=== PATIENT | female | born 1970 | race Caucasian/White ===

== ENCOUNTER 2018-12-07 06:04 | Observation (INO) ==
--- NOTE | 2018-11-24 14:49 | PAT Medication Instructions ---
Medication Instructions Date of Service November 24, 2018 Home Medications ibuprofen 600 mg PO BID PRN ASK your surgeon for instructions ibuprofen 600 mg PO BID PRN Other Notes If you have any questions please call us at [phone] or [phone] or [phone] or [phone]
--- NOTE | 2018-11-25 08:47 | Anesthesiology Consultation ---
Date of Service November 25, 2018 Assessment & Plan (1) Encounter for pre-operative examination: Chart Review Chart Review: Acceptable Risk for Surgery (pending preop testing (labs, EKG, CXR)) and Patient seen in Pre Admission Testing Teaching & Discussion Pre-Anesthesia Teaching/Discussion Notes: Instructed NPO after midnight before surgery,except medications with 15 cc of water. Medication instructions provided according to the PAT guidelines. History Surgery Operation Date: 12/07/18 10:25 Proposed Procedures p Anterior Cervical Discectomy Fusion Spinal Cord Monitoring - Bharat Iraheta DO Height/Weight Height: 5 ft 4 in Weight: 66.9 kg Allergies Allergy/AdvReac Type Severity Reaction Status Date / Time No Known Allergies Allergy Verified 11/19/18 15:31 Medications Home Medications Medication Instructions Recorded Confirmed Last Taken ibuprofen 600 mg PO BID PRN 11/19/18 11/19/18 Unknown Past Medical History Medical History Cervical stenosis of spine with UE radiculopathy/neuropathy Exercise / Class Metabolic Activity II 4-5 Yardwork/Stairs/Walk up hill Past Family History Family History Grandmother Family hx of colon cancer Past Surgical History Surgical History History of adenoidectomy History of bilateral tubal ligation History of colonoscopy History of repair of ACL right ACL revision History of tonsillectomy S/P ACL repair right Past Anesthesia History No Hx of Anesthesia Complications (except PONV) and No Family Hx of Anesthesia Complications History of PONV No Hx of Motion Sickness and History of PONV (multiple times) STOP BANG Total 0 Social History Smoking Status: Never smoker Do You Dip or Chew Tobacco: No Hx Alcohol Use: Yes Alcohol type: beer alcohol intake frequency: other Alcohol Intake Frequency Comment: RARELY Hx Substance Use: No substance use type: does not use Review of Systems Patient denies chest pain, shortness of breath, dyspnea on exertion, reflux, cough, wheezing, palpitations. Physical Exam Vital Signs VITALS BP 117/75 P 55 TEMP 98.3 SP02 100%RA RESP 18 PHYSICAL Decreased cervical extension 2/2 UE radiculopathy Full TMJ range of motion. TMD 3 finger breaths Mallampati Score 1 Dentition: missing molar filling, 2 caps on molars Lungs: clear throughout to auscultation Cardiac: regular rate and rhythm, no murmurs noted Spine: normal Extremities: no edema
--- NOTE | 2018-11-25 09:36 | XRay Report ---
XR chest Pre-admission PA/Lat HISTORY: Preop. COMPARISON: None. FINDINGS: The lungs are clear. Cardiac silhouette is normal in size. No pleural effusions. No pneumot horax. IMPRESSION: No acute process. Electronically signed by: Cortez Tristan M.D. 11/25/2018 9:35 AM
[2018-11-25 10:11] LABS: Appearance Urine Clear (Clear); Bilirubin Urine Negative (Negative); Blood Urine Negative (Negative); Color Urine Yellow; Glucose Urine UA Negative (Negative); Ketones Urine Negative (Negative); Leukocyte Esterase Urine Negative (Negative); Nitrite Urine Negative (Negative); Protein Urine Negative (Negative); Specific Gravity Urine 1.009 (1.000-1.030); Urobilinogen Urine Negative (Negative)
[2018-11-25 10:20] LABS: Partial Thromboplastin Time 26.9 Seconds (21.0-31.0); Prothrombin Time 10.5 Seconds (9.0-12.0)
[2018-11-25 10:38] LABS: Basophils # (auto) 0.03 K/uL (0-0.2); Basophils % (auto) 0.7 %; Eosinophils % (auto) 2.2 %; Hematocrit (blood only) 41.5 % (37-47); Hemoglobin 14.1 g/dL (12.0-16.0); Immature Granulocytes # (auto) 0.01 K/uL (0.00-0.02); Immature Granulocytes % (auto) 0.2 %; Lymphocytes # (auto) 1.45 K/uL (1.2-3.4); Lymphocytes % (auto) 32.4 %; Mean Corpuscular Hemoglobin 31.1 pg (25-34); Mean Corpuscular Volume 91.6 fL (80-100); Monocytes # (auto) 0.42 K/uL (0.11-0.59); Monocytes % (auto) 9.4 %; Neutrophils # (auto) 2.46 K/uL (1.4-6.5); Neutrophils % (auto) 55.1 %; Platelet Count 212 K/uL (130-400); RDW Coefficient of Variation 12.7 % (11.5-14.5); RDW Standard Deviation 42.9 fL (36.4-46.3); Red Blood Count 4.53 M/uL (4.2-5.4); White Blood Count 4.47 K/uL (4.8-10.8)
[2018-11-25 11:35] LABS: BUN Creatinine Ratio 18.5 (10-20); Calcium 8.9 mg/dl (8.5-10.1); Creatinine Clr Calc Pharmacy 77.8 ml/min; Est GFR (African American) 95.2; Est GFR (Non-African American) 82.2; Potassium 4.5 mmol/L (3.5-5.1)
[~2018-12-07 06:04] MED LIST: ACETAMINOPHEN 500 MG TAB PO SCH; CEFAZOLIN 1000MG 1,000 MG/7.5 ML SYR IV SCH; CeleBREX 200 MG CAP PO SCH; GABAPENTIN 900 MG DOSE PO SCH; LR 15ML/HR IV SCH; SCOPOLAMINE 1.5 MG TDSY TD SCH
[2018-12-07] MEDS ORDERED: fentaNYL citrate 100 MCG/2 ML VIAL ONE ×3 (06:47→08:25)
[2018-12-07] MEDS ORDERED: HYDROmorphone INJ 2 MG/ML SYR/VIAL ONE (06:47)
[2018-12-07] MEDS ORDERED: MIDAZOLAM HCL 1 MG/ML 2ML VIAL ONE (06:47)
[2018-12-07] MEDS ORDERED: NEOSTIGMINE METHYLSULFATE 1 MG/ML 10ML VIAL ONE (06:49)
[2018-12-07] MEDS ORDERED: LIDOCAINE HCL 2% 2 ML VIAL/AMP(20MG/ML) INFIL ONE (06:49)
[2018-12-07] MEDS ORDERED: GLYCOPYRROLATE 0.2 MG/ML VIAL ONE (06:49)
[2018-12-07] MEDS ORDERED: PROPOFOL IV EMULSION 10 MG/ML 20 ML VIAL IV ONE (06:49)
[2018-12-07] MEDS ORDERED: DEXAMETHASONE SOD INJ 4 MG/ML VIAL ONE (06:49)
[2018-12-07] MEDS ORDERED: ONDANSETRON INJ 2 MG/ML 2 ML VIAL ONE (06:49)
[2018-12-07] MEDS ORDERED: ROCURONIUM BROMIDE 10 MG/ML 5 ML VIAL ONE (06:49)
[2018-12-07] MEDS ORDERED: BACITRACIN INJ 50,000 UNIT VIAL ONE (07:03)
[2018-12-07] MEDS ORDERED: ONDANSETRON INJ 2 MG/ML 2 ML VIAL IV PRN ×2 (07:24→09:07)
[2018-12-07] MEDS ORDERED: ePHEDrine sulfate 50 MG/ML AMP IV PRN (07:24)
[2018-12-07] MEDS ORDERED: HYDROmorphone INJ 2 MG/ML SYR/VIAL IV PRN (07:24)
[2018-12-07] MEDS ORDERED: PROMETHAZINE HCL 12.5 MG in SODIUM CHLORIDE 0.9% 50 ML IV PRN (07:24)
[2018-12-07] MEDS ORDERED: ATROPINE SULFATE 0.1 MG/ML 10ML SYR IV PRN (07:24)
[2018-12-07] MEDS ORDERED: fentaNYL citrate 100 MCG/2 ML VIAL IV PRN (07:24)
--- NOTE | 2018-12-07 07:31 | History & Physical Bridge Note ---
Date of Service December 07, 2018 History & Physical Bridge Note I have examined the patient, reviewed the History & Physical and in the interval since the performance of the History & Physical I have noted the following changes of clinical significance: no changes noted
[2018-12-07] MEDS ORDERED: PROPOFOL IV EMULSION 10 MG/ML 100 ML VIAL IV ONE (07:32)
--- NOTE | 2018-12-07 07:33 | History & Physical Report ---
Date of Service December 07, 2018 Assessment & Plan (1) Cervical stenosis of spinal canal: Anterior cervical discectomy and fusion C5-6 Present on Admission?: Yes History of Present Illness Chief Complaint: Neck and bilateral arm pain Primary Care Provider: NO PCP This is a 48-year-old female who presents with chronic persistent neck and bilateral arm pain. After failing extensive course of nonoperative care is here for surgical intervention. Allergies Allergy/AdvReac Type Severity Reaction Status Date / Time No Known Allergies Allergy Verified 12/07/18 06:27 Home Medications Home Medications Medication Instructions Recorded Confirmed Type No Known Home Medications 11/30/18 12/07/18 History Past Med/Surg History Medical History Cervical stenosis of spine with UE radiculopathy/neuropathy Surgical History History of adenoidectomy History of bilateral tubal ligation History of colonoscopy History of repair of ACL right ACL revision History of tonsillectomy S/P ACL repair right Family History Grandmother Family hx of colon cancer Social History Preferred Language: Lao Communication Ability: Effective Research Quality Assurance Analyst Required: No Beliefs That Will Affect Care: None Current Living Situation: Alone Other Information That Helps Us Care for You: No Feels Safe at Home: Yes Safety Concerns: Feels Safe At This Time Smoking Status: Never smoker Do You Dip or Chew Tobacco: No ; Second Hand Exposure: Yes (occasional as a child) ; Tobacco Cessation Education Requested by Patient: No Hx Alcohol Use: Yes Alcohol type: beer Hx Substance Use: No Physical Exam Physical Exam: Patient is alert and oriented neurologically intact. Results & Data Vital Signs (Past 12 Hours) Vital Signs Temp Pulse Resp BP Pulse Ox 12/07/18 06:32 36.6 C 70 14 113/83 100
[2018-12-07] MEDS ORDERED: LARYING-O-JET KIT (LTA) ONE (08:13)
[2018-12-07] MEDS ORDERED: raNITIdine HCl 25 MG/ML VIAL IV ONE ×2 (08:25)
[2018-12-07] MEDS ORDERED: METOCLOPRAMIDE HCL INJ 5 MG/ML 2 ML VIAL ONE ×2 (08:25)
[2018-12-07] MEDS ORDERED: SUCCINYLCHOLINE CHLORIDE 20 MG/ML 10 ML VIAL ONE (08:36)
[2018-12-07] MEDS ORDERED: FLOSEAL HEMOSTATIC MATRIX 10ML TOP ONE (09:01)
[2018-12-07] MEDS ORDERED: NALOXONE HCL 0.4 MG/1 ML VIAL/CARP IV PRN (09:07)
[2018-12-07] MEDS ORDERED: HYDROmorphone INJ 0.5 MG/0.5 ML SYR IV PRN (09:07)
[2018-12-07] MEDS ORDERED: OXYCODONE HCL IR 5 MG TAB (IMMEDIATE RELEASE) PO PRN (09:07)
[2018-12-07] MEDS ORDERED: ACETAMINOPHEN 500 MG TAB PO PRN (09:07)
[2018-12-07] MEDS ORDERED: MAGNESIUM HYDROXIDE SUSP 30 ML UDC PO PRN (09:07)
[2018-12-07] MEDS ORDERED: RACEPINEPHRINE 2.25% NEBU SOLN 0.5 ML VIAL INH PRN (09:07)
[2018-12-07] MEDS ORDERED: DO NOT ADMINISTER FLU VACCINE PRN (09:07)
[2018-12-07] MEDS ORDERED: DEXAMETHASONE SOD PHOSPHATE 8 MG in SYRINGE 0 ML IV PRN (09:07)
[2018-12-07] MEDS ORDERED: TRAMADOL HCL 50 MG TABLET PO PRN (09:07)
[2018-12-07] MEDS ORDERED: LORazepam 0.5 MG TAB PO PRN (09:07)
[2018-12-07] MEDS ORDERED: DO NOT ADMINISTER PNEUMOCOCCAL VACCINE PRN (09:07)
[2018-12-07] MEDS ORDERED: DiphenhydrAMINE HCL 50 MG/ML VIAL IV PRN (09:07)
[2018-12-07] MEDS ORDERED: LORazepam 0.5 MG/1 ML VIAL IV PRN (09:07)
[2018-12-07] MEDS ORDERED: ACETAMINOPHEN 1,000 MG/100 ML VIAL IV PRN (09:07)
--- NOTE | 2018-12-07 09:07 | Operative Report ---
Post Operative Report Pre & Post Diagnosis Operation Date: 12/07/18 07:45 Pre-Op Diagnosis: Cervical spinal stenosis with radiculopathy Post-Op Diagnosis: Same Procedure Operation Date: 12/07/18 07:45 Actual Procedures #1 anterior cervical discectomy with bilateral foraminotomies C5-6. #2 anterior cervical arthrodesis C5-6. #3 placement of cortical allograft filled with DBM 7 mm in height at C5-6. #4 application of garcia plate and screws across C5-6. Surgeon Bharat Iraheta, Firing Pin Gauger Dianna Marie Estimated Blood Loss 10 Findings Consistent with Post-Op Diagnosis Specimens None Indications This is a 48-year-old female who presents with above-mentioned diagnosis after failing extensive course of nonoperative care like to undergo the above- mentioned procedure. Description of Procedure Patient was met with identified and informed consent obtained. Patient was then taken to the operative suite underwent intubation and placed in a supine position with the head Hanson hot header operator. All bony prominences well-padded eyes inspected to ensure no external pressure placed upon the peer at this point the anterior cervical spine was prepped and draped in the normal sterile fashion. Sharp dissection with the assistance of bipolar electrocautery was performed down to and exposing the anterior cervical spine at C5-6. Self- retaining retractors placed. Then performed a complete discectomy of C5-6 out to the uncovertebral joints bilaterally. [place] distracting pins were utilized to assist in visualization. I removed all posterior annular fibers performed bilateral foraminotomies. Endplates were then burred to subcortical bleeding bone and a 7 mm cortical allograft filled with DBM tapped in position. Garcia plate and screws were then applied with the assistance of fluoroscopy. Incision was then copiously irrigated explored to ensure no damage to surrounding structures remaining bleeding. 10 round HELEN drain inserted. The incision was then closed with 2 Vicryl in the fascia and 4-0 Monocryl for final skin closure. Steri-Strip sterile dressing placed. Patient will continue PACU stable condition. Please note Dianna Marie present throughout the entire procedure involved in patient positioning complex portions of the surgery and final skin closure. Lastly spinal cord monitoring was utilized that the procedure and no changes noted. I attest to the content of the Intraoperative Record and any orders documented therein. Any exceptions are noted below.
--- NOTE | 2018-12-07 09:13 | Fluoroscopy Report ---
FL cervical 2-3V CLINICAL HISTORY: 48 years-old Female presenting with C5-C6 ACDF. TECHNIQUE: 2 fluoroscopic image(s) recorded as part of an intraoperative procedure. COMPARISON: MR from 10/22/2018. FINDINGS/IMPRESSION: Slight straightening of normal cervical lordosis likely positional. Anterior cervical discectomy and fusion of C5-6. Endotracheal tube and surgical material project over the anterior neck. Please see surgical report for further details. Fluoroscopy dosage (mGy): 0.49. Fluoroscopy time: 6.6 seconds. Number or time of high level fluoroscopy (HLF), digital spot, or digital subtraction images: 0. Electronically signed by: Cory Bush M.D. 12/07/2018 9:12 AM
[2018-12-07] MEDS ORDERED: LACTATED RINGER'S 1,000 ML IV SCH (09:15)
[2018-12-07] MEDS ORDERED: ESMOLOL HCL INJ 10 MG/ML 10ML VIAL IV ONE (09:16)
[2018-12-07] MEDS ORDERED: ePHEDrine sulfate 50 MG/ML SYR ONE (09:16)
--- NOTE | 2018-12-07 10:24 | Anesthesiology Progress Note ---
Date of Service December 07, 2018 Anesthesia Post Procedure Vital Signs Vital Signs: Temp Pulse Pulse Resp BP Pulse Ox 12/07/18 10:15 76 22 126/84 99 12/07/18 10:05 62 23 126/80 99 12/07/18 09:55 58 L 14 117/74 99 12/07/18 09:45 57 L 12 119/77 99 12/07/18 09:35 58 L 15 123/76 99 12/07/18 09:25 74 18 128/86 99 12/07/18 09:19 36.5 C 89 21 132/80 99 12/07/18 06:32 36.6 C 70 14 113/83 100 Pain Intensity Neck: Pain Intensity: 4 Transfer of Care Handoff Completed per policy Notes Mental Status: alert / awake / arousable and participated in evaluation Patient Amnestic to Procedure: Yes Nausea / Vomiting: adequately controlled Pain: adequately controlled Airway Patency, RR, SpO2: stable & adequate BP & HR: stable & adequate Hydration State: stable & adequate Anesthetic Complications: no major complications apparent and Pt Satisfied with anesthetic care
[2018-12-07] MEDS ORDERED: SCOPOLAMINE 1.5 MG TDSY TD SCH (11:00)
[2018-12-07] MEDS: CEFAZOLIN 1000MG 1,000 MG/7.5 ML SYR IV SCH ×2 (15:51→23:55)
[2018-12-07] MEDS: CHECK SCOPOLAMINE PATCH PLACEMENT SCH ×4 (15:51→23:54)
[2018-12-07] MEDS: DOCUSATE SODIUM 100 MG CAP PO SCH (20:06)
--- NOTE | 2018-12-08 07:27 | Anesthesiology Progress Note ---
Date of Service December 08, 2018 Anesthesia Post Procedure Vital Signs Vital Signs: Temp Pulse Pulse Resp BP Pulse Ox 12/08/18 07:08 73 16 97 12/08/18 06:45 37.1 C 70 18 116/80 96 12/08/18 05:45 37.3 C 64 16 118/73 98 12/08/18 03:45 36.9 C 61 16 112/67 94 12/08/18 01:45 36.8 C 64 16 106/64 97 12/07/18 23:45 36.6 C 63 16 116/76 96 12/07/18 22:56 66 16 96 12/07/18 21:45 37.1 C 58 L 16 128/78 94 12/07/18 19:45 36.7 C 61 18 118/78 97 12/07/18 19:13 78 16 97 12/07/18 17:37 36.7 C 71 16 117/73 94 12/07/18 16:16 36.7 C 73 16 110/68 95 12/07/18 15:27 74 20 96 12/07/18 13:43 37.2 C 74 16 129/75 95 12/07/18 12:40 81 18 131/75 97 12/07/18 11:49 36.7 C 69 16 118/72 98 12/07/18 11:15 69 18 120/75 99 12/07/18 11:14 66 20 99 12/07/18 10:45 36.5 C 65 16 124/45 L 99 12/07/18 10:25 37.4 C 57 L 15 120/87 99 12/07/18 10:15 76 22 126/84 99 12/07/18 10:05 62 23 126/80 99 12/07/18 09:55 58 L 14 117/74 99 12/07/18 09:45 57 L 12 119/77 99 12/07/18 09:35 58 L 15 123/76 99 12/07/18 09:25 74 18 128/86 99 12/07/18 09:19 36.5 C 89 21 132/80 99 Pain Intensity Neck: Pain Intensity: 4 Notes Mental Status: alert / awake / arousable and participated in evaluation Nausea / Vomiting: adequately controlled Pain: adequately controlled Airway Patency, RR, SpO2: stable & adequate BP & HR: stable & adequate Hydration State: stable & adequate
[2018-12-08] MEDS: DOCUSATE SODIUM 100 MG CAP PO SCH (08:26)
[2018-12-08] MEDS: CEFAZOLIN 1000MG 1,000 MG/7.5 ML SYR IV SCH (08:26)
[2018-12-08] MEDS: CHECK SCOPOLAMINE PATCH PLACEMENT SCH (08:27)
--- NOTE | 2018-12-08 09:13 | Discharge Summary ---
Date of Service December 08, 2018 Admission HPI Per Admitting Provider This is a 48-year-old female who presents with chronic persistent neck and bilateral arm pain. After failing extensive course of nonoperative care is here for surgical intervention. Principal Diagnosis Cervical spinal stenosis with radiculopathy Discharge Data Allergies Allergy/AdvReac Type Severity Reaction Status Date / Time No Known Allergies Allergy Verified 12/07/18 06:27 Procedures Performed Operation Date: 12/07/18 07:45 Actual Procedures p C5-C6 Anterior Cervical Discectomy Fusion with Spinal Cord Monitoring(Not Applicable) - Bharat Iraheta DO Ordered Studies 12/07/18 07:45 FL cervical 2-3V Routine FL fluoroscopy <1hr Routine Hospital Course (1) Cervical stenosis of spinal canal: Patient underwent anterior cervical discectomy and fusion tolerated as well as taken to the orthopedic floor postoperative. Postop day #1 she was swallowing well no hoarseness. Arm symptoms improved. Pain well controlled. HELEN drain decreasing probably. Strength is intact on physical exam. Subsequent discharge home. Discharge orders instructions from the chart for further review. Total Time Total Time Spent Total Time Spent (In Minutes): 20 minutes Discharge Plan Discharge Items Patient Disposition: Home - Self-Care Reason For Visit: Spinal Stenosis, Cervical Region Discharge Diagnosis: Cervical spinal stenosis with radiculopathy Activity: Per Instructions section Non-emergency contact: Primary Care Provider Call non-emergency contact if: you have any medication questions Follow-up/Referrals: PCP,NO [Primary Care Provider] - Diet: Regular Addtl Attending Provider Instructions: ACTIVITY RECOMMENDATIONS: SELF CARE INSTRUCTIONS AFTER CERVICAL FUSIONS 1. No smoking. Smoking drastically decreases the chance of a solid fusion. 2. No bending, lifting more than 5 pounds, or twisting (roll like a log when turning in bed). 3. You may shower 3 days after surgery. Thoroughly dry wound. Do not soak in the tub. 4. Cervical collar: Must be worn at all times including sleeping. You may remove the brace only to bath, eat and if you are sitting in a recliner. 5. Please walk as much as you can for exercise. Gradually increase the distance that you walk as your endurance increases. SPECIAL CARE INSTRUCTIONS: VERY IMPORTANT TO READ AND REVIEW A. Do not take any anti-inflammatory medications (i.e. Indocin, Advil, Aspirin, Naprosyn, Aleve, Motrin, etc.) as these may inhibit the chance of a solid fusion. Tylenol is okay to take. B. Your surgical incision has been closed with a cosmetic suture under the skin that will dissolve in about 6 weeks. In 14 days, you can use a pair of clean scissors and cut the suture that is left outside of the skin at the ends of your incision. C. Complications are uncommon, but please contact us if you have any signs or symptoms of: 1. wound infection (fever higher than 102.5 degrees F, redness, separation of wound, drainage, or increasing pain from the incision) 2. blood clots in legs (pain, swelling, redness and warmth in legs) 3. urinary tract infection (fever higher than 102.5 degrees, burning upon urination or increased frequency of urination) 4. nerve problems (inability to walk on your toes or heels, numbness, loss of bowel or bladder control) 5. any other symptoms that concern you. D. Please call the office at if you have any concerns or questions about your operation or recovery. MANAGING PAIN AFTER SPINAL SURGERY 1. Narcotic medication is intended for short-term use and will be provided for surgical pain. Surgical pain usually lasts for a period of 4-6 weeks. Narcotic medication includes Percocet, Vicodin, Darvocet, Tylenol #3 or Lortab. 2. Longer-term pain is more appropriately treated with non-narcotic medication such as Tylenol ES. 3. Muscle spasm is not appropriately treated with narcotics. Muscle relaxers such as Soma, Flexeril or Skelaxin can be used along with Tylenol ES. 4. Remember that we all live with some "aches and pains". This is not unusual or uncommon after an injury or as we get older. 5. We will provide appropriate medication within the normal guidelines of their prescribed use. We will also be very cautious and aware of potential abuse and extended duration of patients' medication needs. 6. Please allow 2-3 days to process refills. Prescriptions will not be mailed but must be picked up at the office. FOLLOW UP VISIT: Keep your scheduled follow-up appointment. Any questions, please call the office at . Pending Studies at Discharge: No Stand-Alone Forms: [facility] Medications and DC Order Prescriptions: New tramadol 50 mg Tablet 50 mg PO Q4H PRN (Reason: Pain, Mild) Qty: 20 RF: 0 oxycodone 5 mg Tablet 5 mg PO Q4H PRN (Reason: Pain, Severe) Qty: 20 RF: 0 No Action No Known Home Medications RF: 0 Discharge Orders: Discharge Order (Routine); Ordered 12/08/18 Ordered By: Bharat Iraheta Admission Data Admit Date/Time: 12/07/18 09:07 Attending Provider: Bharat Iraheta Admit Provider: Bharat Iraheta Primary Care Provider: PCP,NO
[2018-12-10] MEDS ORDERED: SCOPOLAMINE 1.5 MG TDSY TD SCH (07:00)
== END 2018-12-08 09:58 | disposition home or self-care (01) ==
LOC: 3E 06:04 → ASU 06:04